=== PATIENT | female | born 1975 | race African-American/Black ===

== ENCOUNTER → 2016-07-15 | Day surgery (SDC) | payer OTHER ==
--- NOTE | 2016-07-16 14:14 | PATH ---
Surgical Pathology Report Patient Name: [facility]. Rec. #: [id number] /Age/Gender: 1975 (Age: 40) / F Account: [id number] Location: [facility] RAD[facility] Taken: 07/15/2016 Received: 07/15/2016 Reported: 07/16/2016 Physicians: Uma Brambila M.D. Specimen(s) Received A: LEFT AXILLARY LYMPH NODE CORE BX B: RIGHT BREAST CORE BX 9:00, 4-5CM FN Clinical History Probably benign, r/o FA Final Diagnosis A. LYMPH NODE, LEFT AXILLARY, US GUIDED CORE BIOPSY: FRAGMENTS OF BENIGN APPEARING REACTIVE LYMPH NODE. FRAGMENTS OF BENIGN BREAST TISSUE WITH STROMAL FIBROSIS (SEE COMMENT). FRAGMENTS OF BENIGN FATTY TISSUE. Comment: The presence of benign breast tissue in the biopsy designated as axillary lymph node suggests accessory breast tissue. Clinical end imaging correlations are suggested. Immunohistochemical stains performed and interpreted at [facility] on block A1 show the following: CD3 and CD20 immunostains highlight mixed populations of T and B-cells; Ae1/Ae3 highlights benign breast tissue and is negative in the lymph node fragments. B. BREAST, RIGHT 9:00, 4-5CM FN, US GUIDED CORE BIOPSY: FRAGMENTS OF FIBROADENOMA AND BACKGROUND FIBROCYSTIC CHANGE WITH DUCT DILATATION AND STROMAL FIBROSIS. Electronically Signed Crescencio Montano M.D. Gross Description A. Received in formalin, labeled "left axilla biopsy" are 7 boyle-yellow, cylindrical portions of fibroadipose tissue ranging from 0.2-1.0 cm in length and averaging 0.2 cm in diameter. The specimen is submitted in toto in one cassette. B. Received in formalin, labeled "right breast biopsy 9:00, 4-5 cmfn," is a 2.2 x 1.5 x 0.3 cm aggregate of multiple boyle-yellow, irregular to cylindrical portions of fibroadipose tissue admixed with blood clot. The formalin is filtered and the specimen is entirely submitted in one cassette. Time to formalin fixation: 2 minutes Total formalin fixation time: Approximately 6 hours. /07/15/2016 saudi07/15/2016
== END | disposition home or self-care (01) ==
LOC: FRADUS-SUR 11:08
PROVIDERS: ATTEND Internal Medicine
PROC: 0HBT3ZX Excision of Right Breast, Percutaneous Approach, Diagnostic (ICD-10-PCS; principal; 2016-07-15)
PROC: 07B63ZX Excision of Left Axillary Lymphatic, Percutaneous Approach, Diagnostic (ICD-10-PCS; 2016-07-15)
PROC: BH47ZZZ Ultrasonography of Upper Extremity (ICD-10-PCS; 2016-07-15)
DX: N63 Unspecified lump in breast (principal); D24.1 Benign neoplasm of right breast; N64.89 Other specified disorders of breast; N60.32 Fibrosclerosis of left breast
CPT/HCPCS: 19083; 76942-TC; 87899; 88305-TC; 88341-TC; 88342-TC; A4648

== ENCOUNTER 2017-11-27 10:27 | Day surgery (SDC) | payer OTHER ==
[2017-11-26 17:47] VITALS: BMI 29.2
[2017-11-27] MEDS ORDERED: LIDOCAINE HCL 1%, 10 MG/ML (20ML VIAL) ONE (11:15)
[2017-11-27] MEDS ORDERED: MIDAZOLAM HCL 2 MG/2 ML SINGLE DOSE VIAL ONE (12:30)
[2017-11-27] MEDS ORDERED: CLINDAMYCIN PHOSPHATE 600 MG/4 ML VIAL IVPB ONE (12:30)
[2017-11-27] MEDS ORDERED: PROPOFOL 20 ML ONE (12:34)
[2017-11-27] MEDS ORDERED: LIDOCAINE HCL 1%, 10 MG/ML (20ML VIAL) INF ONE (12:43)
[2017-11-27] MEDS ORDERED: ONDANSETRON 4 MG/2 ML VIAL IVPUSH PRN (14:53)
[2017-11-27] MEDS ORDERED: oxyCODONE HCL 5 MG TABLET PO PRN (14:53)
[2017-11-27] MEDS ORDERED: ACETAMINOPHEN 500 MG TABLET (FP) PO PRN (14:53)
[2017-11-27] MEDS ORDERED: LACTATED RINGERS SOLUTION 1,000 ML IV SCH (15:00)
[2017-11-27 15:07] VITALS: TEMP 98.6
--- NOTE | 2017-11-27 15:41 | OP ---
DATE OF OPERATION: 11/27/2017 PREOPERATIVE DIAGNOSIS: Left breast mass. POSTOPERATIVE DIAGNOSIS: Left breast abscess. PROCEDURE: Incision and drainage of left breast abscess. SURGEON: Gail Hawkins M.D. ANESTHESIA: General. ESTIMATED BLOOD LOSS: Minimal. COMPLICATIONS: None. This is a sterile procedure. INDICATION: Patient presented with palpable mass in the upper left breast that is progressively increasing in size. She has in the past noted it to be slightly red when she was treated with antibiotics; however, when I met her there was a 5-cm mass in the upper left breast close to the areolar border. She really did not want this aspirated, and so we decided on electing an excisional biopsy of this. The procedure was discussed with all the questions answered. PROCEDURE IN DETAIL: Patient brought to [facility] in [place], taken into the operating room, and after induction of general anesthesia and IV antibiotics, the left breast was prepped and draped in the usual sterile fashion. The area of the upper left breast was anesthetized with 1% lidocaine without epinephrine. A periareolar incision was made in the upper left breast and as soon as I entered into this, there was purulent material that was drained out that was non-smelly. Once this was cleared the mass completely collapsed, and there was no other palpable abnormality within this abscess cavity. Therefore no excision was performed. Once the incision and drainage was completed, hemostasis assured with electrocautery, minimally parenchyma was approximated with 2-0 Vicryl, skin approximated with interrupted 3-0 Vicryl, and interrupted 4-0 Prolene. I packed the wound on the lateral most aspect to keep the incision open to prevent an infection. This was then dressed with Tegaderm and 4x4 and paper tape she tolerated procedure well, was extubated on the operating room table, taken to recovery in good condition. Uma KIMBROUGH/[id number]
[2017-11-27 16:15] VITALS: BP 110/70; PULSE 84
== END 2017-11-27 15:40 | disposition home or self-care (01) ==
LOC: JASU-SURG 10:27
PROVIDERS: ATTEND Surgery
PROC: 0H9U0ZZ Drainage of Left Breast, Open Approach (ICD-10-PCS; principal; 2017-11-27 11:45)
DX: N61.1 Abscess of the breast and nipple (principal)
CPT/HCPCS: 87070; 87075; 87205; 94760

== ENCOUNTER 2019-05-11 11:43 | Day surgery (SDC) | payer OTHER ==
[2019-05-11 12:03] VITALS: BMI 25.3
[2019-05-11] MEDS ORDERED: PROPOFOL 20 ML ONE (12:31)
[2019-05-11 13:35] VITALS: TEMP 98.6
[2019-05-11 14:03] VITALS: BP 114/70; PULSE 77
--- NOTE | 2019-05-13 15:14 | PATH ---
Surgical Pathology Report Patient Name: [facility]. Rec. #: [id number] /Age/Gender: 1975 (Age: 43) / F Account: [id number] Location: [facility] Taken: 05/11/2019 Received: 05/11/2019 Reported: 05/13/2019 Physicians: Arcelia Geronimo M.D. Specimen(s) Received A: SECOND PORTION DUODENUM B: GASTRIC ANTRUM C: GE JUNCTION Clinical History Dyspepsia, weight loss Postoperative diagnosis: Gastritis, duodenitis Final Diagnosis A. SECOND PORTION OF DUODENUM, BIOPSY: DUODENAL MUCOSA WITH NO PATHOLOGIC FINDINGS. B. GASTRIC ANTRUM, BIOPSY: MILD CHRONIC GASTRITIS WITH FEATURES OF REACTIVE GASTROPATHY. IMMUNOSTAIN IS NEGATIVE FOR H. PYLORI ORGANISMS. C. GE JUNCTION, BIOPSY: ESOPHAGEAL (SQUAMOUS) MUCOSA WITH NO PATHOLOGIC FINDINGS. NO COLUMNAR EPITHELIUM/INTESTINAL METAPLASIA IS IDENTIFIED. Electronically Signed Khloe Carmen M.D. Gross Description A. Received in formalin, labeled "biopsy second portion of duodenum" is a boyle, irregular portion of soft tissue measuring 0.4 cm. in greatest dimension. The specimen is submitted in toto in one cassette. B. Received in formalin, labeled "biopsy gastric antrum" is a boyle, irregular portion of soft tissue measuring 0.4 cm. in greatest dimension. The specimen is submitted in toto in one cassette. C. Received in formalin, labeled "biopsy GE junction" is a boyle, irregular portion of soft tissue measuring 0.2 cm. in greatest dimension. The specimen is submitted in toto in one cassette. 05/12/2019 saudi05/12/2019
== END 2019-05-11 13:40 | disposition home or self-care (01) ==
LOC: FASU-ENDO 11:43
PROVIDERS: ATTEND Internal Medicine Gastroenterology
PROC: 0DB68ZX Excision of Stomach, Via Natural or Artificial Opening Endoscopic, Diagnostic (ICD-10-PCS; 2019-05-11)
PROC: 0DB48ZX Excision of Esophagogastric Junction, Via Natural or Artificial Opening Endoscopic, Diagnostic (ICD-10-PCS; 2019-05-11)
PROC: 0DB98ZX Excision of Duodenum, Via Natural or Artificial Opening Endoscopic, Diagnostic (ICD-10-PCS; principal; 2019-05-11 12:40)
DX: K29.50 Unspecified chronic gastritis without bleeding (principal); K31.9 Disease of stomach and duodenum, unspecified; R10.13 Epigastric pain
CPT/HCPCS: 88305-TC; 88342-TC

== ENCOUNTER 2019-12-21 09:32 | Day surgery (SDC) | payer OTHER ==
[2019-12-12 15:46] VITALS: BMI 22.3
[2019-12-21] MEDS ORDERED: PROPOFOL 20 ML ONE ×2 (10:04)
[2019-12-21 11:59] VITALS: TEMP 97.6
[2019-12-21 12:02] VITALS: BP 149/98; PULSE 74
--- NOTE | 2019-12-28 15:34 | PATH ---
Surgical Pathology Report Patient Name: [facility]. Rec. #: [id number] /Age/Gender: 1975 (Age: 44) / F Account: [id number] Location: [facility] Taken: 12/21/2019 Received: 12/21/2019 Reported: 12/28/2019 Physicians: Arcelia Geronimo M.D. Specimen(s) Received A: RIGHT COLON B: TRANSVERSE COLON C: DESCENDING COLON D: RECTUM Clinical History Change in bowel habits Postoperative diagnosis: Rule out microscopic colitis, diverticuli, hemorrhoids Final Diagnosis A. RIGHT COLON, BIOPSY: COLONIC MUCOSA WITH NO PATHOLOGIC FINDINGS. B. TRANSVERSE COLON, BIOPSY: COLONIC MUCOSA SHOWING SMALL BENIGN/REACTIVE LYMPHOID AGGREGATE. C. DESCENDING COLON, BIOPSY: COLONIC MUCOSA SHOWING SMALL BENIGN/REACTIVE LYMPHOID AGGREGATE. D. RECTUM, BIOPSY: COLONIC/RECTAL MUCOSA SHOWING MILD SURFACE HYPERPLASTIC CHANGE. Comment: Features suggestive of microscopic colitis are not identified in these biopsies. Electronically Signed Khloe Carmen M.D. Gross Description A. Received in formalin, labeled "biopsy right colon" are 2 boyle, irregular portions of soft tissue measuring 0.3 and 0.4 cm. in greatest dimension. The specimens are submitted in toto in one cassette. B. Received in formalin, labeled "biopsy transverse colon" is a boyle, irregular portion of soft tissue measuring 0.5 cm. in greatest dimension. The specimen is submitted in toto in one cassette. C. Received in formalin, labeled "biopsy descending colon" are 2 boyle, irregular portions of soft tissue measuring 0.4 and 0.6 cm. in greatest dimension. The specimens are submitted in toto in one cassette. D. Received in formalin, labeled "biopsy rectum" is a boyle, irregular portion of soft tissue measuring 0.2 cm. in greatest dimension. The specimen is submitted in toto in one cassette. 12/22/2019 saudi12/22/2019
== END 2019-12-21 12:00 | disposition home or self-care (01) ==
LOC: FASU 09:32
PROVIDERS: ATTEND Internal Medicine Gastroenterology
PROC: 0DBL8ZX Excision of Transverse Colon, Via Natural or Artificial Opening Endoscopic, Diagnostic (ICD-10-PCS; 2019-12-21)
PROC: 0DBP8ZX Excision of Rectum, Via Natural or Artificial Opening Endoscopic, Diagnostic (ICD-10-PCS; 2019-12-21)
PROC: 0DBM8ZX Excision of Descending Colon, Via Natural or Artificial Opening Endoscopic, Diagnostic (ICD-10-PCS; 2019-12-21)
PROC: 0DBK8ZX Excision of Ascending Colon, Via Natural or Artificial Opening Endoscopic, Diagnostic (ICD-10-PCS; principal; 2019-12-21 11:02)
DX: K57.30 Diverticulosis of large intestine without perforation or abscess without bleeding (principal); K64.1 Second degree hemorrhoids; R19.4 Change in bowel habit
CPT/HCPCS: 84703; 88305-TC